=== PATIENT | male | born 1980 | race Two or more races ===

== ENCOUNTER → 2017-04-13 | Outpatient (CLI) | payer BC ==
[~2017-04-13] MED LIST: OMEP40CA6 PO
== END | disposition home or self-care (01) ==
LOC: CFH 14:20
PROVIDERS: ATTEND Pain Medicine Interventional Pain Medicine
DX: R07.9 Chest pain, unspecified (principal); M54.6 Pain in thoracic spine; G89.29 Other chronic pain
CPT/HCPCS: 71046; 71120; 72072

== ENCOUNTER → 2020-06-15 | Outpatient (CLI) | payer OTHER ==
[~2020-06-15] MED LIST changes: +OMEP40CA42 PO; -OMEP40CA6 PO
== END | disposition home or self-care (01) ==
LOC: CARD 10:08
PROVIDERS: ATTEND Family Medicine
DX: R07.89 Other chest pain (principal)
CPT/HCPCS: 93017